=== PATIENT | female | born 1990 | race Caucasian/White ===

== ENCOUNTER 2020-11-20 11:35 | Outpatient (CLI) | payer OTHER, SELFPAY ==
[2020-11-20 12:56] LABS: Hematocrit 37.9 % (37.0-47.0); Hemoglobin 12.5 g/dL (12.0-15.0); Mean Corpuscular Hemoglobin 30.2 pg (26-34); Mean Corpuscular Volume 91.5 fl (80-100); Mean Platelet Volume 11.8 fl (7.4-10.4); Platelet Count Result 292 k/mm3 (150-375); Red Blood Count 4.14 M/mm3 (4.2-5.4); Red Cell Distribution Width 14.3 % (11.5-14.5); White Blood Count 6.7 K/mm3 (4.5-10.0)
[2020-11-21 06:18] LABS: Rapid Plasma Reagin Non-Reactive (NonReactive)
== END 2020-11-20 11:36 | disposition home or self-care (01) ==
PROVIDERS: PCP Family Medicine; Visit Provider Obstetrics & Gynecology
DX: Z34.93 Encounter for supervision of normal pregnancy, unspecified, third trimester (principal); Z3A.00 Weeks of gestation of pregnancy not specified
CPT/HCPCS: 36415; 85027; 86592; 86850; 86900; 86901

== ENCOUNTER 2020-11-22 08:20 | Inpatient (IN) | payer OTHER, SELFPAY ==
[2020-11-22] VITALS (47 sets, daily range): BP systolic 101–134; BP diastolic 57–94; PULSE 57–135; RESP 16–18; TEMP 36.1–36.7; O2SAT 96–100; BMI 42.0
--- NOTE | 2020-11-22 08:31 | PM.IMHP ---
H&P: HPI History of Present Illness Date/Time: 11/22/20 08:31 Chief Complaint: Here for c section Narrative: 30 y/o at 38 4/7 weeks gestation with prior , now with intrahepatic cholestasis of . She developed intense itching, including of the palms and soles. Her AST was 160, ALT 240 and bile acids were elevated. In light of this new diagnosis, we have moved her scheduled ahead a few days. She has no contractions, good movement. GBS neg. Last ultrasound at 34 weeks showed EFW in 98th percentile, at 6#11oz. Her first baby was born by CS for prolapsed cord, her second delivery was a . She plans a repeat this time. She does not desire any future childbearing, and would like permanent contraception with tubal ligation. Review of Systems Review of Systems: All systems reviewed & are unremarkable except as noted in HPI and below PMFSH Past Medical History Medical History Hypothyroidism affecting Intrahepatic cholestasis of Surgical History Surgical History History of delivery History of Family History Family History Grandparent Family history of malignant neoplasm of bone Family history of cardiovascular disease Diabetes mellitus Family history of thyroid disease Family history of coronary artery disease Carcinoma of colon Hypertension Asthma Mother Diabetes mellitus Depression Hypertension Asthma Father Patient's father is in good health Social History Social History Smoking status: Never smoker Second hand tobacco smoke exposure: No Alcohol intake: current Substance use: never Spiritual care concerns: No Meds Home Medications and Allergies Home Medications Medication Instructions Recorded Confirmed Type levothyroxine 88 mcg tablet 88 mcg PO DAILY #90 tablet 09/08/20 Rx Allergies Allergy/AdvReac Type Severity Reaction Status Date / Time latex Allergy Mild hives Verified 11/04/20 12:35 Exam Const: Orientation/consciousness: patient oriented x3 Other: Well-developed, well-nourished female in no acute distress. Neck: Thyroid: thyroid normal Lymphatic: no lymphadenopathy noted (in neck, axilla or inguinal nodes) Resp: Effort & Inspection: normal respiratory effort Auscultation: clear to auscultation bilaterally Cardio: Rate: regular rate Rhythm: regular rhythm Heart sounds: S1 normal heart sound present and S2 normal heart sound present GI: Other: ABD: Soft, nontender, nondistended, gravid. FHR auscultated. No guarding or rebound tenderness. No hepatosplenomegaly. : General: Yes no CVA tenderness Other: Cervix fingertip, 50% effaced, -2 Back/Spine/Pelvis: Back: no CVA tenderness Skin: General skin exam: normal color and no rashes or lesions noted Neuro: General: patient oriented x3 Extrem: Other: Extremities: nontender with no edema Psych: Mental Status: mental status grossly normal Affect: normal affect Assessment and Plan Assessment and plan (1) Intrahepatic cholestasis of : Code(s): O26.619 - Liver and biliary tract disorders in , unspecified trimester; K83.1 - Obstruction of bile duct Status: Acute (2) Hypothyroidism affecting : Code(s): O99.280 - Endocrine, nutritional and metabolic diseases complicating , unspecified trimester; E03.9 - Hypothyroidism, unspecified Status: Chronic (3) Unwanted fertility: Code(s): Z30.09 - Encounter for other general counseling and advice on contraception Status: Acute (4) History of delivery: Code(s): Z98.891 - History of uterine scar from previous surgery Status: Inactive Assessment and Plan: A: IUP at 38
[2020-11-22] MEDS: LACTATED RINGERS 1,000 ML 125 ML IV CONT ×2 (09:22→09:47)
[2020-11-22 09:26] LABS: Alanine Aminotransferase 132 U/L (4-35); Albumin Level 3.3 g/dL (3.5-5.1); Alkaline Phosphatase 205 U/L (38-126); Anion Gap 6 mmol/L (8-16); Aspartate Amino Transferase 50 U/L (14-36); Bilirubin,Total 0.4 mg/dL (0.2-1.3); Blood Urea Nitrogen 5 mg/dL (7-17); Calcium 9.1 mg/dL (8.4-10.2); Carbon Dioxide 21 mmol/L (22-30); Chloride 110 mmol/L (98-107); Estimated CRCL calculation 145 ml/min; Estimated Glomerular Filt Rate > 60; Glucose 95 mg/dL (65-105); Potassium 3.9 mmol/L (3.4-5.0); Sodium 137 mmol/L (137-145)
--- NOTE | 2020-11-22 10:05 | WPDANESEPPF ---
Anes - Initial Pre Proc Eval Procedure: Operation Date: 11/22/20 10:30 Proposed Procedures p Repeat Section, With Bilateral Tubal Ligation - Rogelio Barber MD Date/Time: 11/22/20 10:05 Surgeon: Rogelio Barber MD Pre Op Diagnosis: Patient Data Age: 30 Gender: F Height: 1.52 m Weight: 97.5 kg Last Vital Signs Pulse 102 H 11/22/20 09:15 BP 128/94 H 11/22/20 09:15 Allergies Allergy/AdvReac Type Severity Reaction Status Date / Time latex Allergy Mild hives Verified 11/04/20 12:35 Home Medications Medication Instructions Recorded Confirmed Type levothyroxine 88 mcg tablet 88 mcg PO DAILY #90 tablet 09/08/20 11/22/20 Rx PNV cmb#95-ferrous fumarate-FA 1 tablet PO DAILY 11/22/20 11/22/20 History [] Laboratory Tests 11/22/20 09:07 Sodium 137 mmol/L mmol/L (137-145) Potassium 3.9 mmol/L mmol/L (3.4-5.0) Chloride 110 mmol/L H mmol/L (98-107) Carbon Dioxide 21 mmol/L L mmol/L (22-30) Anion Gap 6 mmol/L L mmol/L (8-16) BUN 5 mg/dL L mg/dL (7-17) Creatinine 0.50 mg/dL L mg/dL (0.7-1.0) Estim Creat Clear Calc 145 ml/min ml/min Estimated GFR > 60 (59 - ) Glucose 95 mg/dL mg/dL (65-105) Calcium 9.1 mg/dL mg/dL (8.4-10.2) Total Bilirubin 0.4 mg/dL mg/dL (0.2-1.3) AST 50 U/L H U/L (14-36) ALT 132 U/L H U/L (4-35) Alkaline Phosphatase 205 U/L H U/L (38-126) Total Protein 7.0 g/dL g/dL (6.3-8.2) Albumin 3.3 g/dL L g/dL (3.5-5.1) Patient hx anesthesia problems: none Family hx anesthesia problems: none [facility] Past Medical History Medical History (Updated 11/22/20 @ 08:38 by Rogelio Barber MD) Hypothyroidism affecting Intrahepatic cholestasis of Surgical History Surgical History (Updated 11/22/20 @ 08:39 by Rogelio Barber MD) History of delivery History of Family History Family History Grandparent Family history of malignant neoplasm of bone Family history of cardiovascular disease Diabetes mellitus Family history of thyroid disease Family history of coronary artery disease Carcinoma of colon Hypertension Asthma Mother Diabetes mellitus Depression Hypertension Asthma Father Patient's father is in good health Social History Social History Smoking status: Never smoker Second hand tobacco smoke exposure: No Alcohol intake: current Substance use: never Spiritual care concerns: No Anes - Eval Final PreProcedure Day of Procedure 11/22/20 10:05 Patient weight: morbidly obese Heart: regular rate and rhythm Lungs: clear to auscultation and normal air movement Airway: Mallampati scale class II Neurological: alert and oriented Last oral intake: >/= 8 hours ASA classification: II Emergent: no Anesthetic plan: proceed Anesthesia type and monitoring: regional spinal Informed Consent: The patient's anesthetic plan and its attendant risks and benefits were discussed with the patient/family/POA. Questions were solicited and answers provided to the satisfaction of the patient/family/POA.
[2020-11-22] MEDS: ceFAZolin 2 GM/D5W 50 ML 2 GM/50 ML BAG IVPB (10:39)
--- NOTE | 2020-11-22 10:51 | WPDHPUPDATE1 ---
History and Physical Update Update Date/Time: 11/22/20 10:51 History and Physical has been reviewed, including an updated exam of the patient. There are NO changes in the patient's condition. Risks, benefits, and alternatives have been discussed and questions answered. Patient agrees to proceed with procedure.
[2020-11-22] MEDS: LACTATED RINGERS 1,000 ML 999 ML IV CONT (11:50)
--- NOTE | 2020-11-22 11:53 | PM.OBPRVD ---
OB - Delivery Note Procedure Delivery date: 11/22/20 Procedure: Procedures Operation Date: 11/22/20 10:30 <No data on this case meets the specified criteria> Repeat Low Transverse Delivery with Bilateral Tubal Ligation via Modified [employer] Delivery monitor: external FHT and external uterine Route of delivery: (Repeat LTCS) Specimen: Yes (cord blood, segments of bilateral Fallopian tubes) Quantitative Blood Loss (ml): 495 Anesthesia type: Spinal Disposition: PACU Complications: None Narrative: The patient was taken to the operating room where she was prepared and draped in the usual sterile fashion in dorsal supine position with a leftward tilt. She received cefazolin preoperatively. Spinal anesthesia was found to be adequate. A Pfannenstiel skin incision was made along the previous scar line and was carried through to the underlying layer of the fascia. The fascia was incised in the midline and the incision was extended laterally. The fascia was dissected free of the underlying rectus muscles. The rectus muscles were in the midline. The peritoneum was identified, tented up and entered sharply. The peritoneal incision was extended superiorly and inferiorly with good visualization of the bladder. The bladder blade was placed. The vesicouterine peritoneum was identified, tented up and entered sharply. The incision was extended laterally and the bladder flap was developed. The bladder blade was replaced. The uterus was then incised sharply in a transverse fashion along the lower uterine segment. The incision was extended laterally. The infant's head was delivered atraumatically to the sterile field, followed by the body. The nose and mouth were bulb suctioned. After a delay, the cord was clamped and cut. The infant was handed off the field. Cord blood was collected. The placenta was removed manually and was passed off the field. The uterus was exteriorized and cleared of all clots and debris. The uterine incision was reapproximated using 0 Monocryl in a running, locked fashion. Excellent hemostasis resulted as did excellent reapproximation of the normal anatomy. The left fallopian tube was then identified by following it out to the fimbriated end. It was grasped in the midportion with a [place] clamp and a loop of tube was ligated with a free tie of 0 plain gut. The tubal segment was then transected and the specimen was passed off to be sent to pathology. Hemostasis was excellent. Attention was turned to the right fallopian tube which was similarly identified, ligated and transected. Once again, excellent hemostasis resulted. The uterus was returned the abdomen. The pelvis was irrigated copiously with warmed normal saline. Rigorous hemostasis was assured. The fascial layer was reapproximated using 0 Vicryl in a running fashion. The skin was closed with a running, subcuticular stitch of 4 0 Vicryl. Dermaflex was applied externally. Sponge, lap, needle and instrument counts were correct. The patient was taken to the recovery room in stable condition. The infant went to the nursery in stable condition. I was present and scrubbed the entire procedure. Luther Baby Date of : 11/22/20 Time of : 11:17 Weeks of gestation at delivery: 38 gender: Female Weight (pounds): 9 Weight (ounces): 12 presentation: vertex Placenta delivery description: Manual Removal and Normal Configuration cord vessel description: 3 Vessels and Delayed Cord Clamping score one minute: 8 score five minutes: 8
--- NOTE | 2020-11-22 11:57 | P.DS_ITS ---
DS: Admitting Diagnosis Admitting Diagnosis Admitting Diagnosis: IUP at 38 3/7 weeks Prior , desires repeat Desired sterility Intrahepatic cholestasis of DS: Discharge Diagnosis Discharge Diagnosis (1) History of delivery: Code(s): Z98.891 - History of uterine scar from previous surgery Status: Acute (2) Unwanted fertility: Code(s): Z30.09 - Encounter for other general counseling and advice on contraception Status: Acute (3) Intrahepatic cholestasis of : Code(s): O26.619 - Liver and biliary tract disorders in , unspecified trimester; K83.1 - Obstruction of bile duct Status: Acute OB - DS: Summary OB Procedures : None OB Procedures Intrapartum: and Tubal ligation OB Procedures: : None Peripartum Data Procedures: Procedures Operation Date: 11/22/20 10:30 <No data on this case meets the specified criteria> Repeat LTCS with BTL DS: Data Data Completed and Pending Labs on day of discharge: Labs from last 24 hours 11/22/20 09:07 Sodium 137 Potassium 3.9 Chloride 110 H Carbon Dioxide 21 L Anion Gap 6 L BUN 5 L Creatinine 0.50 L Estim Creat Clear Calc 145 Estimated GFR > 60 Glucose 95 Calcium 9.1 Total Bilirubin 0.4 AST 50 H ALT 132 H Alkaline Phosphatase 205 H Total Protein 7.0 Albumin 3.3 L Discharge Plan Discharge Attending physician on discharge: Rogelio Barber Discharging Clinician: Rogelio Barber Patient Disposition: Home, Self-Care Activity: pelvic rest Diet: regular Wound Care Instructions: incision open to air Discharge Instructions: Call or return if temperature above 100.4? F, increased abdominal pain, increased vaginal bleeding or any new problems. Stand Alone Forms: General Discharge Information Follow-up/Referrals: Rogelio Barber MD [Physician] - 4 Weeks Discharge Medications: New ibuprofen 600 mg tablet 600 mg PO Q6H PRN (Reason: cramps) Qty: 30 RF: 0 hydrocodone-acetaminophen [[place]av[place]] 5-325 mg tablet 1 - 2 tablet PO Q6H PRN (Reason: pain) Qty: 30 RF: 0 No Action PNV cmb#95-ferrous fumarate-FA [] 28 mg iron- 800 mcg Tablet 1 tablet PO DAILY RF: 0 levothyroxine 88 mcg tablet 88 mcg PO DAILY Qty: 90 RF: 0 Date of admission: 11/22/20 08:20 Primary Care Provider: Rene Warren Admitting Provider: Rogelio Barber Attending physician on admission: Rogelio Barber Condition: Stable
[2020-11-22] MEDS: KETOROLAC 30 MG/ML VIAL (*BKC) IV PUSH ×2 (12:02→19:05)
[2020-11-22] MEDS: fentaNYL CITRATE INJ (*CRX) 100 MCG/2 ML VIAL 25 MCG IV PUSH (12:29)
[2020-11-22] MEDS: OXYTOCIN 30 UNITS/NS 500 ML 30 UNITS/500 ML BAG 125 UNITS IV CONT (12:43)
--- NOTE | 2020-11-22 14:30 | PC.NURSE ---
Patient transferred to post room #[id number] via stretcher. Support person present. Oriented to unit, room, information board, rooming in, admission packet and security measures. Patient verbalizes understanding.
[2020-11-22] MEDS: ONDANSETRON INJ 4 MG/2 ML VIAL IV PUSH (14:31)
[2020-11-22] MEDS: DEXTROSE 5%/0.45% SOD CHL 1,000 ML 125 ML IV CONT (16:46)
[2020-11-22] MEDS: diphenhydrAMINE HCl INJ 50 MG/ML VIAL 25 MG IV PUSH (16:46)
[2020-11-23 00:01] VITALS: BP 104/66; PULSE 86; RESP 18; TEMP 36.7; O2SAT 100
[2020-11-23] MEDS: KETOROLAC 30 MG/ML VIAL (*BKC) IV PUSH (00:01)
[2020-11-23] MEDS: ACETAMINOPHEN 325 MG TABLET 650 MG PO (04:07)
[2020-11-23 04:10] VITALS: BP 116/71; PULSE 82; RESP 16; TEMP 36.3; O2SAT 100
[2020-11-23 05:52] LABS: Basophils Percent Auto 0.4 % (0.2-1.2); Eosinophils Absolute Auto 0.1 K/mm3 (0-0.3); Eosinophils Percent Auto 0.6 % (0-4.4); Hematocrit 38.6 % (37.0-47.0); Hemoglobin 12.4 g/dL (12.0-15.0); Immature Granulocyte Absolute 0.09 K/mm3 (0.00-0.031); Lymphocytes Absolute Auto 1.64 K/mm3 (0.9-3.2); Lymphocytes Percent Auto 17.5 % (18.3-44.2); Mean Corpuscular HGB Conc 32.1 g/dl (32-36); Mean Corpuscular Hemoglobin 30.5 pg (26-34); Mean Corpuscular Volume 95.1 fl (80-100); Mean Platelet Volume 12.5 fl (7.4-10.4); Monocytes Absolute Auto 0.9 K/mm3 (0.1-0.6); Monocytes Percent Auto 9.5 % (2.6-8.5); Neutrophils Absolute Auto 6.7 K/mm3 (1.3-6.7); Platelet Count Result 237 k/mm3 (150-375); Red Blood Count 4.06 M/mm3 (4.2-5.4); Red Cell Distribution Width 14.6 % (11.5-14.5); White Blood Count 9.4 K/mm3 (4.5-10.0)
[2020-11-23 07:15] VITALS: BP 108/69; PULSE 82; RESP 16; TEMP 36.7
[2020-11-23] MEDS: IBUPROFEN 600 MG TABLET PO ×3 (07:38→23:12)
[2020-11-23] MEDS: DOCUSATE SODIUM 100 MG CAPSULE PO ×2 (07:38→16:22)
--- NOTE | 2020-11-23 09:20 | PC.NURSE ---
Pt. took synthyroid from home. Pt. requested in evenings.
--- NOTE | 2020-11-23 09:48 | WPDANLDPN2 ---
Anes-Prog Note L&D Date/Time: 11/23/20 09:48 Comfortable throughout: section Neuraxial method: spinal Epidural/Spinal procedure site: clean & non-tender Neuro status: Neuro function grossly intact. Cardiovascular status: normal Respiratory status: normal Airway patency: baseline Mental status: baseline Post-Op hydration status: normal Vital Signs: Last Vital Signs Temp 36.7 C 11/23/20 07:15 Pulse 82 11/23/20 07:15 Resp 16 11/23/20 07:15 BP 108/69 11/23/20 07:15 Pulse Ox 100 11/23/20 04:10 Pain score (VAS): 11/10 I/O: Intake & Output 11/22/20 11/23/20 11/23/20 23:59 07:59 15:59 Intake Total 150 1850 Output Total 500 1300 Balance -350 550 Post-procedural complaints: none Patient feedback: Patient satisfied with anesthetic care.
--- NOTE | 2020-11-23 09:48 | WPDANLDNPN2 ---
Anes-Prog Note L&D-Neuraxial Date/Time: 11/23/20 09:48 Neuraxial medications: intrathecal PF morphine Opiod-related complaints: nausea moderate, treatment effective Patient feedback: Patient satisfied with post-operative pain management.
--- NOTE | 2020-11-23 09:52 | P.PNOB_ITS ---
OB - PN: Subj Subjective Date/time seen: 11/23/20 09:52 Narrative: Pain OK. Tolerating diet. OB - PN: Obj Data Labs CBC & Chem 7: 11/23/20 04:25 11/22/20 09:07 Labs: Laboratory Results - last 24 hr 11/23/20 04:25 WBC 9.4 RBC 4.06 L Hgb 12.4 Hct 38.6 MCV 95.1 MCH 30.5 MCHC 32.1 RDW 14.6 H Plt Count 237 MPV 12.5 H Immature Gran % (Auto) 1.0 H Neut % (Auto) 71.0 Lymph % (Auto) 17.5 L [place] % (Auto) 9.5 H Eos % (Auto) 0.6 Baso % (Auto) 0.4 Lymph # (Auto) 1.64 [place] # (Auto) 0.9 H Eos # (Auto) 0.1 Baso # (Auto) 0.0 Abs Immat Gran (auto) 0.09 H Absolute Neuts (auto) 6.7 Absolute Nucleated RBC 0.0 Nucleated RBC % 0.0 OB - PN A/P Plan Comments: A: POD#1, doing well. P: Routine care. Time Spent With Patient Time: Total time spent is greater than 50% in coordination of care (as documented) at patient's floor/unit and/or counseling patient: Exam Narrative: Exam Narrative: AVSS I/O OK ABD soft, nontender, fundus firm. Incision c/d/i. EXT nontender
[2020-11-23] MEDS: HYDROcodone/acetaminophen (*CRX) 5-325 MG TABLET 1 TAB PO ×2 (12:08→16:22)
[2020-11-23] MEDS: SIMETHICONE 80 MG TAB.CHEW PO ×3 (16:27→23:12)
[2020-11-23 19:55] VITALS: BP 133/75; PULSE 82; RESP 18; TEMP 37.1; O2SAT 100
[2020-11-23] MEDS: HYDROcodone/acetaminophen (*CRX) 10-325 MG TABLET 1 TAB PO ×2 (19:55→23:12)
--- NOTE | 2020-11-23 19:55 | PC.NURSE ---
Patient to view the discharge video Mother & Baby Care, The First Two Weeks online. Patient was given the opportunity and encouraged to ask questions. Patient verbalized understanding of information shared and has been given the mother/baby guide for home reference.
[2020-11-24] MEDS: HYDROcodone/acetaminophen (*CRX) 10-325 MG TABLET 1 TAB PO ×2 (03:25→07:46)
[2020-11-24] MEDS: SIMETHICONE 80 MG TAB.CHEW PO ×2 (03:26→07:45)
[2020-11-24] MEDS: DOCUSATE SODIUM 100 MG CAPSULE PO (07:45)
[2020-11-24] MEDS: IBUPROFEN 600 MG TABLET PO (07:47)
[2020-11-24 08:00] VITALS: BP 120/79; PULSE 82; PULSE 84; RESP 18; TEMP 36; O2SAT 100; O2SAT 97
--- NOTE | 2020-11-24 09:01 | PM.OBPNVD ---
OB - PN: Subj Subjective Date/time seen: 11/24/20 09:01 Narrative: Pain OK. Tolerating diet. Would like to go home. OB - PN: Obj Data Labs CBC & Chem 7: 11/23/20 04:25 11/22/20 09:07 OB - PN A/P Plan Comments: A: POD#2, doing well. P: Home to f/u 4 weeks. Exam Narrative: Exam Narrative: AVSS ABD soft, nontender, fundus firm. Incision c/d/i. EXT nontender
[2020-11-26 08:44] VITALS: BP 139/93; PULSE 100; RESP 20; TEMP 36.6; O2SAT 98
== END 2020-11-24 13:46 | disposition home or self-care (01) | DRG 783 ==
LOC: ANHLDR 12:01 → ANHOB2 14:40
PROVIDERS: Admitting Provider Obstetrics & Gynecology; PCP Family Medicine; Visit Provider Obstetrics & Gynecology
PROC: 10D00Z1 Extraction of Products of Conception, Low, Open Approach (ICD-10-PCS; CPT 59514; principal; 2020-11-22 10:30)
DX: O26.62 Liver and biliary tract disorders in childbirth (principal); K83.1 Obstruction of bile duct; Z30.2 Encounter for sterilization; O99.284 Endocrine, nutritional and metabolic diseases complicating childbirth; E03.9 Hypothyroidism, unspecified; Z3A.38 38 weeks gestation of pregnancy; Z37.0 Single live birth; O99.214 Obesity complicating childbirth; E66.01 Morbid (severe) obesity due to excess calories
CPT/HCPCS: 36415; 80053; 85025; 88302; A9270; J0131; J0690; J1200; J1885; J2274; J2370; J2405; J2590; J3010; J7120

== ENCOUNTER → 2021-11-11 01:11 | Outpatient (CLI) | payer OTHER, SELFPAY ==
[2021-11-11 21:02] LABS: SARS-CoV-2 RNA PCR Positive
== END ==
PROVIDERS: PCP Family Medicine; Visit Provider Physician Assistant Medical
DX: U07.1 COVID-19 (principal)
CPT/HCPCS: C9803; U0003; U0005

== ENCOUNTER 2022-10-07 01:01 | Day surgery (SDC) | payer OTHER, SELFPAY ==
[2022-09-30 10:16] VITALS: BMI 34.9
--- NOTE | 2022-09-30 10:21 | PC.NURSE ---
Report to the Outpatient Waiting Room, entrance under the green pavilion located off [facility], at time 1000 on date 10/07/22. Planned Procedure Time: 1200. Time changes happen often and if your time is changed the preop area will call you the afternoon before. - You and your visitor will be asked to self-screen and do not enter if you have any COVID symptoms. - Only one visitor is requested with a max of two and NO children visitors are allowed at this time. - The patient visitor may be requested to leave or wait in car when not with patient due to distancing restrictions. - A mask is optional within the hospital. Patients may have clear liquids (water, carbonated beverages, clear teas, apple juice) until 3 hours prior to surgery with a maximum of 20 ounces. - No food from midnight until time of surgery Take the following medications with a SIP of water the morning of surgery: LEVOTHYROXINE Medications to discontinue per physician: VITAMINS/SUPPLEMENTS Date to take last dose: 10/03/22 Please no make-up, nail serbian, hairspray, perfume, deodorant, or body powder the day of surgery. No jewelry (including any body piercings) or valuables the day of surgery, leave them at home. Please take a shower or bath the night before, or the morning of, surgery with an antibacterial soap. Wear comfortable, loose fitting clothing. - Jewelry must be removed prior to entering the operating room. Rings and piercings that are not removed may be cut off. - The hospital will not accept responsibility for valuables. - Please leave all valuables, including medications, at home the day of surgery. If you are going home after surgery, a licensed tractor sweeper driver must drive you home. - NO public transportation without another adult if you receive anesthesia. - We recommend that an adult stay with you for 24 hours following discharge. - We also recommend that you do not drive, make important decision, drink alcoholic beverages, or take any drugs that were not prescribed by your health care provider for at least 24 hours after your discharge time. Follow any additional instructions given to you from your surgeon. If you or anyone in your household have experienced Covid symptoms in the past week, please notify your surgeon or the nurse liaison at the phone number below for possible testing. Telephone instructions given to PT - MERRY MANZANO and asked if any additional questions and then verbalized understanding. Patient advised to call surgeon office or pre surgery nurse liaison [phone] if any additional questions.
[2022-10-07] MEDS: LACTATED RINGERS 1,000 ML 30 ML IV CONT ×2 (11:00→13:24)
[2022-10-07] MEDS: ACETAMINOPHEN 500 MG TABLET 1000 MG PO (11:00)
[2022-10-07 11:02] VITALS: BP 125/71; PULSE 85; RESP 14; TEMP 37; O2SAT 100
--- NOTE | 2022-10-07 11:30 | WPDANESEPPF ---
Anes - Initial Pre Proc Eval Procedure: Operation Date: 10/07/22 12:00 Proposed Procedures p Hysteroscopy Dilation and Curettage Danielle Endometrial Ablation - Rogelio Barber MD Date/Time: 10/07/22 11:30 Surgeon: Rogelio Barber MD Pre Op Diagnosis: irregular bleeding Patient Data Age: 32 Gender: F Height: 1.52 m Weight: 80.75 kg Last Vital Signs Temp 37.0 C 10/07/22 11:02 Pulse 85 10/07/22 11:02 Resp 14 10/07/22 11:02 BP 125/71 10/07/22 11:02 Pulse Ox 100 10/07/22 11:02 O2 Del Method Room Air 10/07/22 11:02 Allergies Allergy/AdvReac Type Severity Reaction Status Date / Time latex Allergy Mild hives Verified 10/07/22 11:06 Home Medications Medication Instructions Recorded Confirmed Type elderberry fruit 200 mg capsule 200 mg PO DAILY 09/22/21 09/30/22 History multivitamin 1 tablet PO DAILY 09/22/21 09/30/22 History turmeric root extract 1,053 mg 1,076 mg PO DAILY 09/22/21 09/30/22 History tablet zinc gluconate 30 mg tablet 30 mg PO DAILY 09/22/21 09/30/22 History levothyroxine 88 mcg tablet See Rx Instructions .Route 07/09/22 10/07/22 Rx .COMPLEX #90 tabs albuterol sulfate 90 mcg/actuation 2 inh inhalation Q4H PRN shortness 08/13/22 09/30/22 Rx aerosol inhaler of breath or wheezing #8.5 grams Patient hx anesthesia problems: none Family hx anesthesia problems: none Results Review: All pre-operative results and documents have been reviewed as part of the pre-operative evaluation. [facility] Past Medical History Medical History BMI 34.0-34.9,adult BMI over 35 Hypothyroidism affecting Intrahepatic cholestasis of Surgical History Surgical History History of delivery History of Family History Family History Grandparent Family history of malignant neoplasm of bone Family history of cardiovascular disease Diabetes mellitus Family history of thyroid disease Family history of coronary artery disease Carcinoma of colon Hypertension Asthma Mother Diabetes mellitus Depression Hypertension Asthma Father Patient's father is in good health Sibling No problems noted. Social History Social History Smoking status: Never smoker Second hand tobacco smoke exposure: No Alcohol intake: current Alcohol use details: RARE Substance use: never Substance use type: does not use Living arrangements: with family Additional occupation/education comments: stay at home mom. Gender identity (if verbalized by the patient): Female Spiritual care concerns: No Anes - Eval Final PreProcedure Day of Procedure 10/07/22 11:30 Patient weight: overweight Heart: regular rate and rhythm Lungs: clear to auscultation Airway: Mallampati scale class II Neurological: alert and oriented Last oral intake: >/= 8 hours ASA classification: II Emergent: no Anesthetic plan: proceed Anesthesia type and monitoring: general GIVS and standard monitoring Results Review: All pre-operative results and documents have been reviewed as part of the pre-operative evaluation. Informed Consent: The patient's anesthetic plan and its attendant risks and benefits were discussed with the patient/family/POA. Questions were solicited and answers provided to the satisfaction of the patient/family/POA.
--- NOTE | 2022-10-07 11:56 | PM.IMHP ---
H&P: HPI History of Present Illness Date/Time: 10/07/22 11:56 Chief Complaint: Heavy painful periods Narrative: 32 y/o who has had a tubal ligation. She has heavy, painful menses. Ultrasound exam showed a thickened endometrial complex. She desires surgical management. Review of Systems Review of Systems: All systems reviewed & are unremarkable except as noted in HPI and below PMFSH Past Medical History Medical History BMI 34.0-34.9,adult BMI over 35 Hypothyroidism affecting Intrahepatic cholestasis of Surgical History Surgical History History of delivery History of Family History Family History Grandparent Family history of malignant neoplasm of bone Family history of cardiovascular disease Diabetes mellitus Family history of thyroid disease Family history of coronary artery disease Carcinoma of colon Hypertension Asthma Mother Diabetes mellitus Depression Hypertension Asthma Father Patient's father is in good health Sibling No problems noted. Social History Social History Smoking status: Never smoker Second hand tobacco smoke exposure: No Alcohol intake: current Alcohol use details: RARE Substance use: never Substance use type: does not use Living arrangements: with family Additional occupation/education comments: stay at home mom. Gender identity (if verbalized by the patient): Female Spiritual care concerns: No Meds Home Medications and Allergies Home Medications Medication Instructions Recorded Confirmed Type elderberry fruit 200 mg capsule 200 mg PO DAILY 09/22/21 09/30/22 History multivitamin 1 tablet PO DAILY 09/22/21 09/30/22 History turmeric root extract 1,053 mg 1,076 mg PO DAILY 09/22/21 09/30/22 History tablet zinc gluconate 30 mg tablet 30 mg PO DAILY 09/22/21 09/30/22 History levothyroxine 88 mcg tablet See Rx Instructions .Route 07/09/22 10/07/22 Rx .COMPLEX #90 tabs albuterol sulfate 90 mcg/actuation 2 inh inhalation Q4H PRN shortness 08/13/22 09/30/22 Rx aerosol inhaler of breath or wheezing #8.5 grams Allergies Allergy/AdvReac Type Severity Reaction Status Date / Time latex Allergy Mild hives Verified 10/07/22 11:06 Vital Signs Vital Signs - 24 hr 10/07/22 11:02 Temperature 37.0 C Pulse Rate 85 Respiratory Rate 14 Blood Pressure 125/71 Pulse Oximetry 100 Oxygen Delivery Room Air Exam Const: Orientation/consciousness: patient oriented x3 Other: Well-developed, well-nourished female in no acute distress. Neck: Thyroid: thyroid normal Lymphatic: no lymphadenopathy noted (in neck, axilla or inguinal nodes) Resp: Effort & Inspection: normal respiratory effort Auscultation: clear to auscultation bilaterally Cardio: Rate: regular rate Rhythm: regular rhythm Heart sounds: S1 normal heart sound present and S2 normal heart sound present GI: Other: ABD: Soft, nontender, nondistended. No guarding or rebound tenderness. No hepatosplenomegaly. : General: Yes no CVA tenderness Other: External genitalia: normal female hair distribution, without lesion. Urethral meatus: no lesion, non prolapsed. Bladder: no mass, nontender Vagina: well-estrogenized, without lesion or discharge. No cystocele or rectocele. Cervix: no lesion or discharge. Uterus: small, anteverted, freely mobile, nontender Adnexa: no mass or tenderness. Anus/perineum: no lesions, nontender Back/Spine/Pelvis: Back: no CVA tenderness Skin: General skin exam: normal color and no rashes or lesions noted Neuro: General: patient oriented x3 Extrem: Other: Extremities: nontender with no edema Psych: Mental Status: mental status grossly normal Affect: normal affect Assessme
--- NOTE | 2022-10-07 12:00 | WPDHPUPDATE1 ---
History and Physical Update Update Date/Time: 10/07/22 12:00 History and Physical has been reviewed, including an updated exam of the patient. There are NO changes in the patient's condition. Risks, benefits, and alternatives have been discussed and questions answered. Patient agrees to proceed with procedure.
[2022-10-07] MEDS: KETOROLAC 30 MG/ML VIAL (*BKC) IV PUSH (12:11)
[2022-10-07] MEDS: LIDOCAINE 1% BUFFERED WITH 8.4% SODIUM BICARB 1 ML SYRINGE 10 ML INFILTRATE (12:21)
--- NOTE | 2022-10-07 12:36 | W.PM.PROC2 ---
Procedure Note - Detailed Date of Procedure 10/07/22 Pre-op Diagnosis Menometrorrhagia Dysmenorrhea Post-op Diagnosis Same Procedure Performed Hysteroscopy Dilation with suction curettage Endometrial ablation Surgeon Rogelio Barber MD Anesthesia MAC and Local (1% lidocaine) Findings Uterus sounded to a depth of 9 cm with a cervical length of 3 cm, giving a subtracted uterine cavity depth of 6 cm. Both tubal ostia were seen. The endometrial cavity was unremarkable. Description of Procedure The patient was taken to the operating room where she was prepared and draped in the usual sterile fashion in the dorsal lithotomy position. The bladder was drained with a red rubber catheter. A sterile speculum was placed into the vagina. The anterior lip of the cervix was grasped with single-tooth tenaculum. Ten mL of 1% lidocaine was administered in a paracervical block. The cervix was then gently dilated using Hegar dilators until an 8 mm dilator could be passed. Hysteroscopy was performed using sterile saline as a distention medium. Findings are as noted above. Sharp curettage was then performed, and endometrial curettings were collected on a Telfa pad and passed off to be sent to pathology. Finally, the the Danielle device was advanced and endometrial ablation commenced. With 36 seconds left, an error message displayed, with instructions to replace the handset. This was accomplished, and ablation resumed without further difficulty. The device was withdrawn and a second look was taken using the hysteroscope. Excellent coverage of the endometrial cavity was noted. The tenaculum was removed. Hemostasis was excellent. Sponge, lap, needle and instrument counts were correct. The patient was awakened and taken to the recovery room in stable condition. I was present and scrubbed through the entire procedure. Implants None Estimated Blood Loss 10 Drains No Packing No Pathology Yes (Endometrial curettings) Complications None Condition Stable Disposition PACU
[2022-10-07 12:41] VITALS: BP 115/80; PULSE 80; RESP 12; O2SAT 98
[2022-10-07] MEDS: fentaNYL CITRATE INJ (*CRX) 100 MCG/2 ML VIAL 25 MCG IV PUSH ×4 (13:00→14:16)
[2022-10-07 13:10] VITALS: BP 117/84; PULSE 60; RESP 14; O2SAT 99
[2022-10-07 13:40] VITALS: BP 130/89; PULSE 81
[2022-10-07] MEDS: oxyCODONE HCL (*CRX) 5 MG TAB IR PO (13:50)
[2022-10-07 14:10] VITALS: BP 120/82; PULSE 72
[2022-10-07 14:40] VITALS: BP 119/82; PULSE 75
== END 2022-10-07 14:49 | disposition home or self-care (01) ==
PROVIDERS: PCP Family Medicine; Visit Provider Obstetrics & Gynecology
PROC: 0U5B8ZZ Destruction of Endometrium, Via Natural or Artificial Opening Endoscopic (ICD-10-PCS; CPT 58563; principal; 2022-10-07 12:00)
DX: N92.1 Excessive and frequent menstruation with irregular cycle (principal); N94.6 Dysmenorrhea, unspecified; E03.9 Hypothyroidism, unspecified; Z79.51 Long term (current) use of inhaled steroids
CPT/HCPCS: 58563; 88305; A9270; J1885; J2250; J2405; J2704; J3010; J7120

== ENCOUNTER 2023-10-26 13:32 | Outpatient (CLI) | payer OTHER, SELFPAY ==
--- NOTE | ~2023-10-26 | XR_ITS ---
EXAMINATION: XR chest 2V 10/26/2023 13:57 INDICATION: Cough PROCEDURE: 2 view chest COMPARISON: 11/13/2011 FINDINGS: The lungs are clear. The cardiomediastinal silhouette is within normal limits. There are no pleural effusions. There is no pneumothorax suspected. There are cholecystectomy clips in the [facility] upper abdomen. IMPRESSION: 1: NO ACUTE CARDIOPULMONARY DISEASE. Reviewed, dictated and finalized at location L. [facility] CLERK
== END 2023-10-26 13:33 | disposition home or self-care (01) ==
PROVIDERS: PCP Family Medicine; Visit Provider Physician Assistant
DX: R07.81 Pleurodynia (principal); R05.9 Cough, unspecified
CPT/HCPCS: 71046